=== PATIENT | female | born 1985 | race American Indian/Alaskan Native ===

== ENCOUNTER 2018-12-15 10:10 | Emergency (ER) | payer OTHER ==
[2018-12-15] MEDS ORDERED: FIORICET PO ONE (10:48)
--- NOTE | 2018-12-15 11:14 | Emergency Department Report ---
ED Headache HPI - General Chief Complaint: Upper Respiratory Infection Stated Complaint: HEADACHE Time Seen by Provider: 12/15/18 10:40 - History of Present Illness Initial Comments: 33-year-old healthy looking pleasant female presents to the ED complaining of right side temporal headache intermittent for the past week. Patient denies any head trauma or head injuries loss of consciousness. She denies history of migraine or headache. Patient denies nausea vomiting blurred vision. Patient states she is taking Ultram as well as Excedrin with no relief. She denies runny nose/cough. She states last menstrual period as 12/15/2018 Timing/Duration: 1 week Quality: mild, achy, throbbing Head Injury Location: temporal Recent Head Trauma: no recent headache/trauma Modifying Factors: improves with: rest Allergies/Adverse Reactions: Allergies No Known Allergies Allergy (Unverified 12/15/18 10:11) Home Medications: Ambulatory Orders Butalb/Acetamin/Caff 50-325-40 [Fioricet] 2 tab PO Q8H #30 tablet 12/15/18 ED Review of Systems ROS: Stated complaint: HEADACHE Other details as noted in HPI Comment: All other systems reviewed and negative ED Past Medical Hx - Past Medical History Previous Medical History?: No - Surgical History Past Surgical History?: No - Social History Smoking Status: Never Smoker Substance Use Type: None - Medications Home Medications: Home Medications Medication Instructions Recorded Confirmed Last Taken Type Butalb/Acetamin/Caff 50-325-40 2 tab PO Q8H #30 tablet 12/15/18 Unknown Rx [Fioricet] ED Physical Exam - General Limitations: No Limitations General appearance: alert, in no apparent distress - Head Head exam: Present: atraumatic, normocephalic - Eye Eye exam: Present: normal appearance - ENT ENT exam: Present: mucous membranes moist - Neck Neck exam: Present: normal inspection - Respiratory Respiratory exam: Present: normal lung sounds bilaterally. Absent: respiratory distress - Cardiovascular Cardiovascular Exam: Present: regular rate, normal rhythm. Absent: systolic mu rmur, diastolic murmur, rubs, gallop - GI/Abdominal GI/Abdominal exam: Present: soft, normal bowel sounds - Extremities Exam Extremities exam: Present: normal inspection - Back Exam Back exam: Present: normal inspection - Neurological Exam Neurological exam: Present: alert, oriented X3, CN II-XII intact, normal gait - Expanded Neurological Exam Expanded Patient oriented to: Present: person, place, time Speech: Present: fluid speech Cerebellar function: Finger to Nose: Normal Motor strength exam: RUE: 5, LUE: 5, RLE: 5, LLE: 5 Best Eye Response (Yumiko): (4) open spontaneously Best Motor Response (Yumiko): (6) obeys commands Best Verbal Response (Yumiko): (5) oriented [place] Total: 15 - Psychiatric Psychiatric exam: Present: normal affect, normal mood - Skin Skin exam: Present: warm, dry, intact, normal color. Absent: rash ED Course Vital Signs 12/15/18 10:11 Temperature 98.2 F Pulse Rate 87 Respiratory 16 Rate Blood Pressure 139/87 O2 Sat by Pulse 97 Oximetry ED Medical Decision Making - Medical Decision Making 33-year-old female presents with headache nontraumatic She received 2 tabs given in ED Discussed the patient was discharged on Fioricet. Discharge planning a rest, increase fluids, decrease stress. Patient has no neurological deficits. Vital signs are normal she is in no acute or respiratory distress Discussed follow-up with primary care physician. I discussed return to ED if worsening symptoms or new onset of symptoms Critical care attestation.: If time is entered above; I have spent that time in minutes in the direct care of this critically ill patient, excluding procedure time. ED Disposition Clinical Impression: Headache, Acute nonintractable headache Disposition: DC-01 TO HOME OR SELFCARE Is pt being admited?: No Does the pt Need Aspirin: No Condition: Stable Instructions: Migraine Headache (ED), Tension Headache (ED), Acute Headache (ED) Additional Instructions: Make sure to follow up with the primary care physician as discussed. Take all your medications as you've been prescribed. If you have any worsening symptoms or develop new symptoms please return to ED immediately. Prescriptions: Butalb/Acetamin/Caff 50-325-40 [Fioricet] 2 tab PO Q8H #30 tablet Referrals: [facility] [Other] - 3-5 Days Forms: Work/School Release Form(ED) Time of Disposition: :19
[2018-12-15 11:34] VITALS: BP 140/80
== END 2018-12-15 11:32 | disposition home or self-care (01) ==
LOC: ED 10:10
DX: R51 Headache (principal)
CPT/HCPCS: 99282

== ENCOUNTER 2019-04-09 19:07 | Emergency (ER) | payer OTHER ==
[2019-04-09 19:30] VITALS: BP 164/104
--- NOTE | 2019-04-09 19:31 | Emergency Department Report ---
Chief Complaint: Chest Pain Stated Complaint: CP Time Seen by Provider: 04/09/19 19:27 - HPI History of Present Illness: This is a 34 y.o. female that presents to the ER with chest tightness and shortness of breath for 20 minutes. Denies radiating pain, palpitations, fever, cough, or edema. Reports autoimmune disorder with diagnosis. 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 - Exam Vital Signs: Vital Signs 04/09/19 19:27 Temperature 97.9 F Pulse Rate 90 Respiratory 18 Rate Blood Pressure 164/104 O2 Sat by Pulse 98 Oximetry MSE screening note: Focused history and physical exam performed. Due to findings the following was ordered: labs, ekg, and cxr ED Disposition for MSE Condition: Stable
[2019-04-09 19:59] LABS: Basophils # (Auto) 0.1 K/mm3 (0.0-0.1); Basophils % (Auto) 0.6 % (0.0-1.8); Eosinophils # (Auto) 0.4 K/mm3 (0.0-0.4); Eosinophils % (Auto) 3.8 % (0.0-4.3); Hemoglobin 13.2 gm/dl (10.1-14.3); Lymphocytes # (Auto) 2.5 K/mm3 (1.2-5.4); Lymphocytes % (Auto) 26.8 % (13.4-35.0); Mean Corpuscular HGB Conc 34 % (30-34); Mean Corpuscular Volume 72 fl (79-97); Monocytes # (Auto) 0.9 K/mm3 (0.0-0.8); Monocytes % (Auto) 9.3 % (0.0-7.3); Platelet Count 278 K/mm3 (140-440); Red Cell Distribution Width 15.9 % (13.2-15.2)
[2019-04-09 20:22] LABS: BUN/Creatinine Ratio 17; Blood Urea Nitrogen 12 mg/dL (7-17); Calcium 9.3 mg/dL (8.4-10.2); Hemolysis Index 1
--- NOTE | 2019-04-09 21:26 | XRay Report ---
PROCEDURE: XR CHEST ROUTINE 2V TECHNIQUE: PA and lateral chest radiographs were obtained. HISTORY: chest pain COMPARISONS: None. FINDINGS: Heart: Normal. Mediastinum/Vessels: Normal. Lungs/Pleural space: Normal. Bony thorax: No acute osseous abnormality. IMPRESSION: Normal examination. This document is electronically signed by Ash Diallo MD., Apr 09 2019 09:23:53 PM ET
== END 2019-04-09 21:25 | disposition left against medical advice (07) ==
LOC: ED 19:07
DX: R07.89 Other chest pain (principal); Z53.21 Procedure and treatment not carried out due to patient leaving prior to being seen by health care provider
CPT/HCPCS: 36415; 71046; 80048; 84484; 85025; 93005; 93010

== ENCOUNTER 2020-07-10 10:16 | Outpatient (CLI) | payer OTHER ==
[2020-07-10 11:41] VITALS: BP 118/66
[2020-07-10] MEDS ORDERED: LACTATED RINGERS 500 ML IV ONE (12:00)
[2020-07-10 13:13] LABS: Bacteria,Urine 1+ /HPF (Negative); Bilirubin,Urine NEG (Negative); Blood,Urine NEG (Negative); Color,Urine Yellow (Yellow); Mucus,Urine FEW /HPF; Protein,Urine <15 mg/dL mg/dL (Negative); Urobilinogen,Urine < 2.0 mg/dL (<2.0)
== END 2020-07-10 13:59 | disposition home or self-care (01) ==
LOC: TRG 10:16 → APU 10:19 → TRG 13:59
PROVIDERS: ATTEND Obstetrics & Gynecology
DX: O36.8120 Decreased fetal movements, second trimester, not applicable or unspecified (principal); Z3A.28 28 weeks gestation of pregnancy
CPT/HCPCS: 59025; 81001

== ENCOUNTER 2020-09-15 09:39 | Outpatient (CLI) | payer OTHER ==
[2020-09-15 10:29] VITALS: BP 107/58
--- NOTE | 2020-09-15 11:14 | Ultrasound Report ---
LIMITED OB ULTRASOUND HISTORY: Provided clinical history of FWB, BASIA; clinical gestational age of 38 weeks and 3 days COMPARISON: None. TECHNIQUE: Cannon scale sonographic images were obtained of the pelvis using transabdominal ultrasound. FINDINGS: Cardiac activity is within normal limits at145 beats per minute. Presentation: Cephalic Amniotic fluid index: 8.0 cm Additional findings: None. IMPRESSION: 1. Live mims intrauterine gestation with cephalic presentation and heart rate/amniotic flu id index within normal limits. Signer Name: John Loja MD Signed: 09/15/2020 11:09 AM Workstation Name: [id number]
== END 2020-09-15 14:09 | disposition home or self-care (01) ==
LOC: TRG 09:39 → APU 09:41 → TRG 14:09
PROVIDERS: ATTEND Obstetrics & Gynecology
DX: O42.913 Preterm premature rupture of membranes, unspecified as to length of time between rupture and onset of labor, third trimester (principal); Z3A.38 38 weeks gestation of pregnancy
CPT/HCPCS: 59025; 76815

== ENCOUNTER 2020-09-23 11:15 | Outpatient (CLI) | payer OTHER ==
[2020-09-23 12:56] VITALS: BP 122/66
== END 2020-09-23 13:16 | disposition home or self-care (01) ==
LOC: TRG 11:15 → APU 11:16 → TRG 13:16
PROVIDERS: ATTEND Obstetrics & Gynecology
DX: O46.8X3 Other antepartum hemorrhage, third trimester (principal); Z3A.39 39 weeks gestation of pregnancy
CPT/HCPCS: 59025

== ENCOUNTER 2020-09-24 20:13 | Inpatient (IN) | payer OTHER ==
[2020-09-24] MEDS ORDERED: ePHEDrine SULFATE 50 MG/1 ML INJ IV PRN ×2 (20:39→23:50)
[2020-09-24] MEDS ORDERED: MINERAL OIL 30 ML ORAL LIQD PO PRN (20:39)
[2020-09-24] MEDS ORDERED: ONDANSETRON 4 MG/2 ML INJ IV PRN (20:39)
[2020-09-24] MEDS ORDERED: PROMETHAZINE 25 MG TAB PO PRN (20:39)
[2020-09-24] MEDS ORDERED: TERBUTALINE 1 MG/1 ML INJ SUB-Q PRN (20:39)
[2020-09-24] MEDS ORDERED: LIDOCAINE (2%) 20 MG/1 ML VIAL 20 ML MDV INFILTRATI ONE (20:39)
[2020-09-24] MEDS ORDERED: BUTORPHANOL 2 MG/1 ML INJ IV PRN ×2 (20:39)
[2020-09-24] MEDS ORDERED: fentaNYL 100 MCG/2 ML INJ IV PRN (20:39)
[2020-09-24] MEDS ORDERED: miSOPROStol 200 MCG TAB PR PRN (20:39)
[2020-09-24] MEDS ORDERED: OXYTOCIN 10 UNIT/1 ML INJ IM PRN (20:39)
[2020-09-24] MEDS ORDERED: NALOXONE 0.4 MG/1 ML INJ IV PRN (20:39)
[2020-09-24] MEDS ORDERED: OXYTOCIN DRIP 30 UNITS/500 ML BAG IV SCH ×2 (21:00)
[2020-09-24] MEDS ORDERED: LACTATED RINGERS 1,000 ML IV SCH (21:00)
[2020-09-24 21:28] LABS: Hematocrit 32.2 % (30.3-42.9); Hemoglobin 11.3 gm/dl (10.1-14.3); Mean Corpuscular HGB Conc 35 % (30-34); Platelet Count 218 K/mm3 (140-440); Red Blood Count 4.99 M/mm3 (3.65-5.03); Red Cell Distribution Width 19.1 % (13.2-15.2)
[2020-09-24 21:31] LABS: Mean Corpuscular Volume 64 fl (79-97)
[2020-09-24] MEDS ORDERED: fentaNYL-BUPIV 2 MCG/ML-0.125% 200 MCG/100 ML BAG EPIDURAL SCH (23:45)
[2020-09-24] MEDS ORDERED: NALOXONE 2 MG/2 ML INJ IV PRN (23:50)
--- NOTE | 2020-09-24 23:50 | Anesthesia Consultation ---
Anesthesia Consult and Med Hx Date of service: 09/24/20 - Airway Anesthetic Teeth Evaluation: Poor ROM Head & Neck: Adequate Mental/Hyoid Distance: Adequate Mallampati Class: Class II Intubation Access Assessment: Probably Good - Pulmonary Exam CTA: Yes - Cardiac Exam Cardiac Exam: RRR - Pre-Operative Health Status ASA Pre-Surgery Classification: ASA3 Proposed Anesthetic Plan: Epidural - Pulmonary Hx Smoking: No Hx Asthma: No Hx Respiratory Symptoms: No SOB: No COPD: No Home Oxygen Therapy: No Hx Pneumonia: No Hx Sleep Apnea: No - Cardiovascular System Hx Hypertension: Yes Hx Coronary Artery Disease: No Hx Heart Attack/AMI: No Hx Angina: No Hx Percutaneous Transluminal Coronary Angioplasty (PTCA): No Hx Cardia Arrhythmia: No Hx Pacemaker: No Hx Internal Defibrillator: No Hx Valvular Heart Disease: No Hx Heart Murmur: No Hx Peripheral Vascular Disease: No - Central Nervous System Hx Neuromuscular Disorder: No Hx Seizures: No CVA: No Hx Back Pain: No Hx Psychiatric Problems: No - Gastrointestinal Hx Ulcer: No Hx Gastroesophageal Reflux Disease: Yes - Endocrine Hx Renal Disease: No Hx End Stage Renal Disease: No Hx Cirrhosis: No Hx Liver Disease: No Hx Insulin Dependent Diabetes: No Hx Non-Insulin Dependent Diabetes: No Hx Thyroid Disease: No Hx Hypothyroidism: No Hx Hyperthyroidism: No - Hematic Hx Anemia: No Hx Sickle Cell Disease: No - Other Systems Hx Alcohol Use: No Hx Substance Use: No Hx Cancer: No Hx Obesity: No
--- NOTE | 2020-09-24 23:55 | Progress Note ---
Labor Epidural - Labor Epidural Start Time: 23:24 Stop Time: 23:37 Performed by:: MINI SMALL Procedure: Patient is requesting combined spinal epidural for labor and pain. H&P, labs were reviewed. All questions and concerns were answered. Informed consent was obtained. Timeout performed. Patient in sitting position on side of bed. Sterile prep and drape was performed. 3 mL 1% lidocaine skin wheal at L [3]-L [4]. 18-gauge Touhy epidural needle advanced to [id number] using air technique, [7cm]. 27-gauge spinal needle advanced, positive free-flowing CSF. Spinal dose of [Precedex 5mcg]. Epidural catheter advanced to [10] cm. [Negative] Aspiration, [Negative] test dose. Sterile dressing applied. Patient tolerated procedure well.
--- NOTE | 2020-09-25 02:47 | History and Physical Report ---
History of Present Illness Date of examination: 09/25/20 Date of admission: 09/24/20 20:13 Chief complaint: "induction of labor" History of present illness: 35 yo at EGA 39w6d who presents for induction of labor for chronic hypertension controlled without medication, and advanced maternal age. Reports movement and regular contractions, denies leakage of fluid or vaginal bleeding. Received care with [facility]. 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 GBS negative. 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 Family/Genetic History: other (silent alpha thalassemia train, hgb C trait) Social history: no significant social history - Obstetrical History Expected Date of Delivery: 09/26/20 Actual Gestation: 39 Week(s) 6 Day(s) : 3 Para: 2 Hx # Term Pregnancies: 2 Number of Living Children: 2 Medications and Allergies Allergies Allergy/AdvReac Type Severity Reaction Status Date / Time No Known Allergies Allergy Verified 04/09/19 19:10 Home Medications Medication Instructions Recorded Confirmed Last Taken Type No Known Home Medications [No 09/25/20 09/25/20 Unknown History Reported Home Medications] Active Meds: Active Medications Butorphanol Tartrate (Stadol) 1 mg IV Q2H PRN PRN Reason: Pain, Moderate(4-6) LABOR PAIN Butorphanol Tartrate (Stadol) 2 mg IV Q2H PRN PRN Reason: Pain , Severe (7-10) Ephedrine Sulfate (Ephedrine Sulfate) 10 mg IV Q2M PRN PRN Reason: Hypotension Fentanyl (Sublimaze) 100 mcg IV Q2H PRN PRN Reason: Pain,Severe (7-10) LABOR PAIN Last Admin: 09/24/20 21:19 Dose: 100 mcg Documented by: Oxytocin/Sodium Chloride (Pitocin/Ns 30 Unit/500ml) 30 units in 500 mls @ 2 mls/hr IV TITR JAYDA; Protocol Lactated Ringer's (Lactated Ringers) 1,000 mls @ 125 mls/hr IV DIRECT JAYDA Last Admin: 09/25/20 01:48 Dose: 125 mls/hr Documented by: Oxytocin/Sodium Chloride (Pitocin/Ns 30 Unit/500ml) 30 units in 500 mls @ 40 mls/hr IV PRN JAYDA; Protocol Stop: 09/25/20 09:29 Fentanyl/Bupivacaine/Sodium Chlor (Fentanyl-Bupiv 2 Mcg/Ml-0.125%) 200 mcg in 100 mls @ 12 mls/hr EPIDURAL TITR JAYDA; Protocol Last Admin: 09/25/20 00:10 Dose: 12 mls/hr Documented by: Mineral Oil (Mineral Oil) 30 ml PO QHS PRN PRN Reason: Constipation Misoprostol (Cytotec) 800 mcg HI ONCE PRN PRN Reason: Uterine Bleeding Naloxone HCl (Naloxone) 0.1 mg IV Q2MIN PRN PRN Reason: Res Rate </= 8 or 02 SAT < 92% Naloxone HCl (Naloxone) 0.2 mg IV Q5M PRN PRN Reason: Respiratory sedation Ondansetron HCl (Zofran) 4 mg IV Q8H PRN PRN Reason: Nausea And Vomiting Oxytocin (Pitocin) 10 unit IM ONCE PRN PRN Reason: Uterine Bleeding Promethazine HCl (Phenergan) 25 mg PO Q6H PRN PRN Reason: Nausea And Vomiting Terbutaline Sulfate (Brethine) 0.25 mg SUB-Q ONCE PRN PRN Reason: Hyperstimulation/Hypertonicity Review of Systems All systems: negative Genitourinary: normal appearance, contractions, no vaginal bleeding, no vaginal discharge, no leakage of fluid - Vital Signs Vital signs: Vital Signs Pulse BP 78 141/78 09/24/20 20:26 09/24/20 20:26 Temp Pulse Resp BP Pulse Ox 98.4 F 86 18 111/59 99 09/24/20 20:53 09/25/20 02:32 09/24/20 21:19 09/25/20 02:10 09/25/20 02:32 - Physical Exam Abdomen: Positive: normal appearance, soft Genitourinary (Female): Positive: normal external genitalia, normal perenium Uterus: Positive: enlarged (gravid) Extremities: Positive: normal - Obstetrical FHR: category 2 (late decels resolved ) Uterine Contraction Monitor Mode: External Cervical Dilatation: 2 (per RN) Cervical Effacement Percentage: 70 station: -1 Uterine Contraction Pattern: Regular Uterine Tone Measurement Phase: Contraction Uterine Contraction Intensity: Strong/Firm Results Result Diagrams: 09/24/20 21:04 Abnormal lab results 09/24/20 Range/Units 21:04 MCV 64 L (79-97) fl MCH 23 L (28-32) pg MCHC 35 H (30-34) % RDW 19.1 H (13.2-15.2) % All other labs normal. Assessment and Plan A: 35 yo EGA 39w6d Chronic hypertension controlled without medication Advanced maternal age GBS negative, membranes intact P: Admit for augmentation of labor Pain relief as requested Anticipate Closely monitor BP
--- NOTE | 2020-09-25 03:15 | Event Note ---
Date: 09/25/20 SVE /1. AROM clear fluid at 3:09am, reassuring FHT throughout.
--- NOTE | 2020-09-25 06:02 | Procedure Note ---
OB Delivery Note - Delivery Date of Delivery: 09/25/20 Surgeon: WILLIS BUENO ([facility]anch[facility]) Estimated blood loss: 200cc - Vaginal Delivery presentation: vertex Delivery position: OA Intrapartum events: PROM->1hr before delivery, meconium (terminal meconium) Delivery augmentation: rupture of membranes, pitocin Delivery monitor: external FHT, external uterine Route of delivery: Delivery placenta: spontaneous Delivery cord: 3 umbilical vessels Episiotomy: none Delivery laceration: none Anesthesia: epidural Delivery comments: Excellent maternal effort, in hands and knees position of viable male infant over intact perineum at 05:33am. No lacerations. Head delivered OA, restituted LOT, shoulders followed easily. to maternal abdomen. Cord cut and clamped, placenta delivered at 5:41 am. 200mL EBL, bleeding resolved with AMTSL, IV pitocin. Apgars 8/9 weight 3075 grams. Baby skin to skin with mother, bonding well , . - A at 1 minute: 8 at 5 minutes: 9 Infant Gender: Male
[2020-09-25] MEDS ORDERED: diphenhydrAMINE 25 MG CAP PO PRN (06:03)
[2020-09-25] MEDS ORDERED: MAGNESIUM HYDROXIDE (MOM) ORAL LIQD UDC PO PRN (06:03)
[2020-09-25] MEDS ORDERED: PROMETHAZINE 25 MG RECT SUPP PR PRN (06:03)
[2020-09-25] MEDS ORDERED: ONDANSETRON 4 MG/2 ML INJ IV PRN (06:03)
[2020-09-25] MEDS ORDERED: WITCH HAZEL/ GLYCERIN PAD TP PRN (06:03)
[2020-09-25] MEDS ORDERED: LANOLIN/ZINC/DIMETHICONE (LANSINOH) 7 GM TP PRN (06:03)
[2020-09-25] MEDS ORDERED: PROMETHAZINE 25 MG TAB PO PRN (06:03)
[2020-09-25] MEDS: IBUPROFEN 600 MG TAB PO SCH ×2 (09:58→18:23)
[2020-09-25 17:14] LABS: Hematocrit 30.5 % (30.3-42.9); Hemoglobin 9.9 gm/dl (10.1-14.3)
[2020-09-26] MEDS: IBUPROFEN 600 MG TAB PO SCH ×2 (00:07→06:09)
--- NOTE | 2020-09-26 11:48 | Progress Note ---
Assessment and Plan - Patient Problems (1) Hypertension affecting , delivered, current hospitalization Current Visit: Yes Status: Acute Plan to address problem: Patient doing well Discharge home Subjective - Subjective Date of service: 09/26/20 Interval history: Patient without any significant complaints. She reports that her pain is well controlled. Patient reports: appetite normal, voiding normally, pain well controlled : doing well Objective - Vital Signs Latest vital signs: Vital Signs Temp Pulse Resp BP Pulse Ox 09/26/20 08:32 98.3 F 74 18 117/62 97 09/26/20 00:34 97.6 F 72 20 115/67 97 09/25/20 17:27 98.4 F 85 18 134/64 98 09/25/20 12:38 98.0 F 83 18 113/68 98 Intake and Output 09/25/20 09/26/20 09/26/20 22:59 06:59 14:59 Intake Total 480 720 240 Balance 480 720 240 Intake: Oral 480 720 240 Other: Total, Intake Amount 240 240 240 # Voids Indwelling Catheter 1 1 1 - Labs Labs: Abnormal lab results 09/25/20 Range/Units 18:03 Hgb 9.9 L (10.1-14.3) gm/dl
--- NOTE | 2020-09-26 11:49 | Discharge Summary ---
Providers - Providers Date of Admission: 09/24/20 20:13 Date of discharge: 09/26/20 Attending physician: CORI CHICAS Primary care physician: CORI CHICAS Hospitalization Reason for admission: induction of labor Delivery: Discharge diagnosis: IUP at term delivered Hospital course: Patient admitted for induction secondary to chronic hypertension affecting . The patient had a spontaneous vaginal delivery. course was uneventful. Condition at discharge: Good Disposition: DC-01 TO HOME OR SELFCARE - Discharge Diagnoses (1) Hypertension affecting , delivered, current hospitalization Status: Acute Plan - Discharge Medications Prescriptions: Ibuprofen [Motrin] 800 mg PO Q8HR PRN #30 tablet PRN Reason: Pain , Severe (7-10) HYDROcodone/APAP 5-325 [[place] 5/325] 1 each PO Q6HR PRN #15 tablet PRN Reason: Pain - Provider Discharge Summary Activity: no sex for 6 weeks, no heavy lifting 4 weeks, no strenuous exercise Diet: routine Instructions: routine Additional instructions: [] Smoking cessation referral if applicable(refer to patient education folder for contact #) [] Refer to [facility] Booklet Call your doctor immediately for: * Fever > 100.5 * Heavy vaginal bleeding ( >1 pad per hour) * Severe persistent headache * Shortness of breath * Reddened, hot, painful area to leg or breast * Schedule visit in 4 weeks - Follow up plan
[2020-09-26 13:23] VITALS: BP 123/82
== END 2020-09-26 14:00 | disposition home or self-care (01) | DRG 806 ==
LOC: LD 20:13 → OB 09-25 08:13
PROVIDERS: ADMIT Obstetrics & Gynecology; ATTEND Obstetrics & Gynecology
PROC: 10E0XZZ Delivery of Products of Conception, External Approach (ICD-10-PCS; principal; 2020-09-25)
PROC: 3E0R3BZ Introduction of Anesthetic Agent into Spinal Canal, Percutaneous Approach (ICD-10-PCS; 2020-09-25)
PROC: 00HU33Z Insertion of Infusion Device into Spinal Canal, Percutaneous Approach (ICD-10-PCS; 2020-09-25)
PROC: 10907ZC Drainage of Amniotic Fluid, Therapeutic from Products of Conception, Via Natural or Artificial Opening (ICD-10-PCS; 2020-09-25)
DX: O77.0 Labor and delivery complicated by meconium in amniotic fluid (principal); O10.92 Unspecified pre-existing hypertension complicating childbirth; Z37.0 Single live birth; O42.92 Full-term premature rupture of membranes, unspecified as to length of time between rupture and onset of labor; Z3A.39 39 weeks gestation of pregnancy; Z20.828 Contact with and (suspected) exposure to other viral communicable diseases; O99.62 Diseases of the digestive system complicating childbirth; K21.9 Gastro-esophageal reflux disease without esophagitis
CPT/HCPCS: 36415; 59025; 85014; 85018; 85027; 86592; 86850; 86900; 86901; G0378; J2590; J3010; J7120; U0003